=== PATIENT | female | born 1980 | race Caucasian/White ===

== ENCOUNTER 2020-02-11 10:12 | Day surgery (SDC) | payer MEDICARE, MEDICAID, SELFPAY ==
[2020-02-11 10:20] VITALS: BMI 21.2
[2020-02-11 10:40] VITALS: BP 122/61; PULSE 84; RESP 18; TEMP 36.9; O2SAT 97
[2020-02-11 10:46] LABS: UPreg QC Valid YES; Urine Pregnancy NEGATIVE (NEGATIVE)
--- NOTE | 2020-02-11 11:10 | P.CONAN_ITS ---
[facility] Past Medical History Medical History (Updated 02/11/20 @ 10:39 by Tamika Rodriguez RN) delivery delivered Colonoscopy planned Sigmoidoscopy performed Surgical History Surgical History (Updated 02/11/20 @ 10:31 by Tamika Rodriguez RN) History of esophagogastroduodenoscopy (EGD) History of esophagogastroduodenoscopy (EGD) Ileostomy status Status post reversal of ileostomy Social History Social History Smoking Status: Never smoker Use of substances other than those prescribed or required for medical reasons: No Have you been hit, kicked, punched, or otherwise hurt by someone within the past year? If so, by whom?: No Advance Directives: No Advance Directives Information Provided: No Meds Allergies Allergy/AdvReac Type Severity Reaction Status Date / Time No Known Allergies Allergy Verified 02/11/20 10:23 Home Medications Medication Instructions Recorded Confirmed Type ciprofloxacin HCl [Cipro] 500 mg PO BID 02/11/20 02/11/20 History loperamide 02/11/20 History metronidazole [Flagyl] 500 mg PO Q8H 02/11/20 02/11/20 History Exam Exam Date and Time: February 11, 2020 1110 Height,Weight and Vital Signs: Height 5 ft 3 in Weight 54.431 kg Last Vital Signs Temp 98.4 F 02/11/20 10:40 Pulse 84 02/11/20 10:40 Resp 18 02/11/20 10:40 BP 122/61 02/11/20 10:40 Pulse Ox 97 02/11/20 10:40 Pertinent Lab Results Pertinent Lab Results: Laboratory Tests 02/11/20 10:32 Urine Test NEGATIVE Airway Mallampati Class: II TM Dist: >3cm Neck ROM: Full Heart: RRR Lungs: CTA BL Assessment and Plan Assessment Anesthesia Assessment: Anesthesia Plan Discussed and Smoking Cess. Discussed Final Anesthetic Review NPO: Yes ASA Class: II Final Preanesthetic Review: Meds/Allgs Chart Reviewed and Consent Obtained/Reviewed Patient Risk: Intermediate Procedure Risk: Intermediate Anesthetic Plan Anesthetic Plan: MAC: Disposition: Standard PACU
[2020-02-11 11:27] LABS: Basophils Absolute Auto 0.1 X10*3/uL (0.0-0.2); Basophils Percent Auto 0.9 % (0-2); Eosinophils Absolute Auto 0.1 X10*3/uL (0.0-0.4); Eosinophils Percent Auto 2.1 % (0-4); Hematocrit 35.9 % (37-47); Imm Gran Abs Auto 0.01 X10*3/uL (0.00-0.03); Imm Gran Pct Auto 0.2 % (0.0-0.4); Lymphocytes Absolute Auto 1.2 X10*3/uL (1.2-4.9); Lymphocytes Percent Auto 20.2 % (20-40); MANUAL DIFF FLAG NO; Mean Corpuscular HGB Conc 33.4 g/dl (31.0-35.0); Mean Corpuscular Hemoglobin 26.6 pg (27.0-33.0); Mean Corpuscular Volume 79.6 fL (80-98); Mean Platelet Volume 11.4 fL (9.4-12.3); Monocytes Absolute Auto 0.4 X10*3/uL (0.1-1.2); Monocytes Percent Auto 6.1 % (2-11); Neutrophils Percent Auto 70.5 % (45-73); Platelet Count 255 X10*3/uL (160-400); Red Blood Count 4.51 X10*6/uL (4.20-5.50); White Blood Count 5.7 X10*3/uL (4.8-10.8)
[2020-02-11 11:46] VITALS: BP 77/39; PULSE 70; RESP 15; TEMP 36.5; O2SAT 95
--- NOTE | 2020-02-11 11:57 | PM.OP ---
Brief Operative Note Date of Service: 02/11/20 Pre-op diagnosis: Pouchitis Post-op diagnosis: same Procedure: Ileoscopy from anus to 50 cm with biopsies Surgeon: Alhaji Babb Anesthesia: MAC Estimated blood loss (mL): 3.0 Pathology: other (A. Ileal pouch from 5-10cm B. Ileal pouch anatomosis at 25cm C. Small intestine at 50cm) Condition: stable Disposition: other
[2020-02-11 12:00] VITALS: BP 94/57; PULSE 72; RESP 16; TEMP 36.5; O2SAT 100
[2020-02-11 12:34] LABS: Erythrocyte Sedimentation Rate 14 MM/HR (0-20)
--- NOTE | 2020-02-11 12:44 | HO.POSTANES ---
Post Anesthesia Evaluation Post Anesthesia Evaluation Vital Signs: Vital Signs Temp Pulse Resp BP Pulse Ox 02/11/20 12:00 97.7 F 72 16 94/57 L 100 02/11/20 11:46 97.7 F 70 15 77/39 L 95 02/11/20 10:40 98.4 F 84 18 122/61 97 Anesthesia: Monitored and General Mental Status: Awake Pain Control: Satisfactory Nausea/Vomiting: None Hydration: Adequate Anesthesia-Related Issues: No Anes. Related Issues
[2020-02-11 12:48] LABS: Folate 14.1 ng/mL (> or = 4.0); Vitamin B12 368 pg/mL (200-900)
--- NOTE | 2020-02-11 12:52 | OP_ITS ---
SURGEON: Alhaji Babb MD INDICATIONS: Full consent has been obtained from her for this, including risks of bleeding and perforation. PREOPERATIVE DIAGNOSIS: POSTOPERATIVE DIAGNOSIS: PROCEDURE PERFORMED: Evaluation of ileoanal pouch to 50 cm with biopsies. ESTIMATED BLOOD LOSS: COMPLICATIONS: ANESTHESIA: Monitored anesthesia care. ASSISTANTS: SPECIMENS: PREOPERATIVE DIAGNOSES: History of pouchitis, diarrhea, and urgency. POSTOPERATIVE DIAGNOSES: History of pouchitis, diarrhea, and urgency. Pouchitis, rule out Crohn's disease. DESCRIPTION OF PROCEDURE: The patient was placed in the left lateral decubitus position. The digital rectal exam revealed some external hemorrhoidal tissue and/or some skin tags, but there was no other perianal disease. The digital exam was not particularly tender, although again she was under some anesthesia. There was no sign of any stricture nor stenosis at the anal opening. The Olympus video pediatric colonoscope was entered into the anal canal and advanced easily to 50 cm. The low anastomosis with a single remaining staple was seen just inside the opening. There was no sign of any stricture. The mucosa distal to the low anastomosis did appear inflamed with edema and some ulcerations. However, again, there was no stricture. From the low anastomosis to approximately 25 cm were scattered ulcerations, but with intervening normal mucosa. The anastomosis at 25 cm was widely patent, but did have some associated edema, ulcerations, and friability. From 25 cm, I was able to advance well into the small bowel. Biopsies were obtained at 50 cm. The small bowel mucosa from the anastomosis at 25 cm to 50 cm, as well as proximal to 50cm for as far as I could see, was all normal without any sign of inflammation. I did obtain biopsies from the anastomosis at 25 cm. I also obtained biopsies of the pouch between 5 and 10 cm. The scope was then withdrawn from the patient. She tolerated the procedure well and was returned to the recovery area in stable condition. IMPRESSION: 1. Pouchitis. 2. Patent ileoanal anastomosis, although with some inflammation. 3. Some inflammation at the anastomosis at 25 cm, but no stricture. 4. Normal proximal small bowel. PLAN: The results of the biopsies will be checked. Given these findings and her history, I do not think this represents Crohn's disease. This appears consistent with some pouchitis. She has been on Cipro and Flagyl for couple of days and will continue that. She will also continue to use dicyclomine as needed. She will be having a CAT scan of the abdomen and pelvis scheduled in the near future.. I would also give her a trial of a mesalamine suppository, although given the inflammation, she may not be able to tolerate that. However, I think it would be worthwhile to try some topical treatment with that if possible. She was advised to see me within 1-2 months for followup. Depending upon her clinical course, we can continue antibiotics at a low dose for maintenance as well. Other options would be topical mesalamine if she tolerates that, oral mesalamine, or 1 of the biologic agents if the pouchitis proves refractory and relapsing in nature. She was advised to avoid all aspirin and NSAIDs long-term. This has been discussed with her . MD DAVE Wright/SELWYN / [id number] MTDD
[2020-02-11 14:59] LABS: Alanine Aminotransferase 7 U/L (0-31); Albumin Level 3.9 g/dL (3.5-5.0); Alkaline Phosphatase 58 U/L (39-117); Anion Gap 12 (12-20); Aspartate Amino Transferase 13 U/L (5-31); Bilirubin Direct 0.2 mg/dL (0.0-0.5); Bilirubin Total 0.4 mg/dL (0.0-1.0); Blood Urea Nitrogen 7 mg/dL (9-16); C Reactive Protein 0.15 mg/dL (< or = 0.50); Calcium 8.8 mg/dL (8.4-10.2); Carbon Dioxide 26 mmol/L (22-29); Chloride 104 mmol/L (96-108); Estimated Glomerular Filt Rate > 60; Glucose Random 90 mg/dL (60-115); Iron 99 mcg/dL (30-160); Percent Iron Saturation 30 % (15-50); Potassium 3.9 mmol/l (3.3-5.1); Sodium 138 mmol/L (135-145); Total Iron Binding Capacity 327 mcg/dL (228-428); Total Protein 6.4 g/dL (6.5-8.0); Unsaturated Iron Binding 228 ug/dL
[2020-02-11 15:19] LABS: Ferritin 13 ng/mL (10-250); TSH reflex Free T4 0.72 mIU/mL (0.32-4.0)
== END 2020-02-11 12:57 | disposition home or self-care (01) ==
PROVIDERS: Internal Medicine; PCP Pediatrics; Visit Provider Anesthesiology
PROC: 0DJD8ZZ Inspection of Lower Intestinal Tract, Via Natural or Artificial Opening Endoscopic (ICD-10-PCS; CPT 45330; principal; 2020-02-11 11:00)
DX: K91.850 Pouchitis (principal); K51.90 Ulcerative colitis, unspecified, without complications; Z98.0 Intestinal bypass and anastomosis status; K44.9 Diaphragmatic hernia without obstruction or gangrene
CPT/HCPCS: 45331; 36415; 80053; 80076; 81025; 82607; 82728; 82746; 83540; 84443; 85025; 85652; 86140; 88305

== ENCOUNTER 2020-02-29 14:28 | Outpatient (REF) | payer MEDICARE, MEDICAID, SELFPAY ==
--- NOTE | 2020-02-29 16:50 | CT_ITS ---
EXAMINATION: CT ABDOMEN AND PELVIS WITH CONTRAST CLINICAL INFORMATION: ULCERATIVE COLITIS,POUCHITIS,ABDOMINAL PAIN,RLQ COMPARISON: None TECHNIQUE: Multidetector volumetric images were obtained from the superior aspect of the liver through the pubic symphysis following administration 85 mL of Omnipaque 350 intravenous contrast. Sagittal and coronal reformatted images were obtained on the technologist's workstation. Oral contrast: No This CT examination was performed using dose optimization techniques as appropriate, variously including the following: *Automated exposure control *Adjustment of mA and/or kV according to patient size (this includes techniques or standardized protocols for targeted exams where dose is matched to indication/reason for exam; i.e. extremities or head) *Use of iterative reconstruction technique DLP: 381 mGy-cm FINDINGS: LUNG BASES: The visualized lung bases are unremarkable. LIVER, GALLBLADDER, AND BILIARY TREE: The liver is normal in size, shape, and attenuation. No focal hepatic lesion or biliary ductal dilatation is present. The gallbladder is unremarkable with no evidence of radiopaque gallstones, gallbladder wall thickening, or obvious pericholecystic inflammatory changes. PANCREAS: Unremarkable. SPLEEN: Unremarkable. ADRENAL GLANDS: Unremarkable. KIDNEYS AND URETERS: The kidneys are normal in size, shape, and attenuation. No hydronephrosis, hydroureter, or calculi seen. No perinephric stranding. BLADDER: Unremarkable. GASTROINTESTINAL TRACT: Status post subtotal colectomy. There is a surgical suture line associated with a distal small bowel loop. There is a bowel loop in the low pelvis which is distended with fluid and some debris to a diameter of 3 cm. Presumably this represents the distal rectum and sigmoid. No bowel wall thickening and no edema however involving this distended loop of bowel. There is no dilatation of the proximal small bowel loops. Mesentery: No inflammation. No free air or free fluid. ABDOMINAL WALL: No significant hernia is appreciated. LYMPH NODES: Normal. VASCULAR: Unremarkable. PELVIC VISCERA: Unremarkable. OSSEOUS STRUCTURES: Unremarkable. CT/CT abdomen pelvis w con IMPRESSION: Status post subtotal colectomy. Dilatation of distal bowel loops low in the pelvis presumably the residual distal rectum and sigmoid. No significant edema however of the bowel wall or edema in the mesentery. There is no free air or free fluid. This critical result was discussed with Dr. Gamino on 02/29/2020, 6:12 PM and it was ascertained that the content and urgency of the report was understood at the time of direct communication.
[2020-02-29] MEDS: iohexoL 350 MG/ML 100 ML INFUS..BTL IV (16:57)
[2020-02-29] MEDS: Barium Sulfate Oral (Berry) 450 ML ORAL.SUSP 900 ML PO (16:58)
== END 2020-02-29 14:29 | disposition home or self-care (01) ==
LOC: HO.CT 14:28
PROVIDERS: Visit Provider Internal Medicine
DX: R10.31 Right lower quadrant pain (principal); K51.90 Ulcerative colitis, unspecified, without complications; K91.850 Pouchitis
CPT/HCPCS: 74177; Q9967

== ENCOUNTER 2020-12-15 14:24 | Outpatient (REF) | payer MEDICARE, MEDICAID, SELFPAY ==
[2020-12-15 14:47] LABS: MANUAL DIFF FLAG NO
[2020-12-15 15:14] LABS: Basophils Absolute Auto 0.1 X10*3/uL (0.0-0.2); Basophils Percent Auto 0.7 % (0-2); Eosinophils Absolute Auto 0.1 X10*3/uL (0.0-0.4); Eosinophils Percent Auto 1.1 % (0-4); Hematocrit 36.9 % (37-47); Imm Gran Abs Auto 0.03 X10*3/uL (0.00-0.03); Imm Gran Pct Auto 0.3 % (0.0-0.4); Lymphocytes Absolute Auto 1.6 X10*3/uL (1.2-4.9); Lymphocytes Percent Auto 17.8 % (20-40); Mean Corpuscular HGB Conc 32.5 g/dl (31.0-35.0); Mean Corpuscular Hemoglobin 24.9 pg (27.0-33.0); Mean Corpuscular Volume 76.6 fL (80-98); Mean Platelet Volume 12.1 fL (9.4-12.3); Monocytes Absolute Auto 0.6 X10*3/uL (0.1-1.2); Monocytes Percent Auto 6.5 % (2-11); Neutrophils Absolute Auto 6.5 X10*3/uL (2.0-8.3); Neutrophils Percent Auto 73.6 % (45-73); Platelet Count 232 X10*3/uL (160-400); Red Blood Count 4.82 X10*6/uL (4.20-5.50); Red Cell Distribution Width 13.9 % (11.0-16.0); White Blood Count 8.9 X10*3/uL (4.8-10.8)
[2020-12-15 16:00] LABS: Alanine Aminotransferase 25 U/L (0-31); Albumin Level 4.5 g/dL (3.5-5.0); Alkaline Phosphatase 54 U/L (39-117); Aspartate Amino Transferase 20 U/L (5-31); Bilirubin Direct 0.2 mg/dL (0.0-0.5); Bilirubin Total 0.5 mg/dL (0.0-1.0); Iron 53 mcg/dL (30-160); Percent Iron Saturation 12 % (15-50); Total Iron Binding Capacity 453 mcg/dL (228-428); Total Protein 7.2 g/dL (6.5-8.0); Unsaturated Iron Binding 400 ug/dL
[2020-12-15 16:21] LABS: Ferritin 7 ng/mL (10-250)
[2020-12-15 16:33] LABS: Folate 11.7 ng/mL (> or = 4.0); Vitamin B12 422 pg/mL (200-900)
[2020-12-17 04:52] LABS: Immunoglobulin A 213 mg/dL (47-310)
[2020-12-18 16:16] LABS: Transglutaminase Ab IgG <1.0 U/mL; Transglutaminase IgA <1.0 U/mL
[2020-12-18 16:21] LABS: Gliadin Deamidated IgA Ab <1.0 U/mL; Gliadin Deamidated IgG Ab <1.0 U/mL
[2020-12-21 11:02] LABS: Endomysial IgA Antibody Negative (Negative)
== END 2020-12-15 14:25 | disposition home or self-care (01) ==
LOC: HO.LAB 14:24
PROVIDERS: PCP Pediatrics; Visit Provider Internal Medicine
DX: R10.31 Right lower quadrant pain (principal); K91.850 Pouchitis
CPT/HCPCS: 36415; 80076; 82607; 82728; 82746; 82784; 83516; 83540; 85025; 86255; 86256

== ENCOUNTER 2022-02-22 09:35 | Day surgery (SDC) | payer MEDICARE, MEDICAID, SELFPAY ==
[2022-02-22 09:39] VITALS: BMI 21.0
[2022-02-22 09:46] VITALS: BP 120/74; PULSE 80; RESP 20; TEMP 36.6
[2022-02-22 09:54] LABS: UPreg QC Valid YES; Urine Pregnancy NEGATIVE (NEGATIVE)
[2022-02-22 12:01] VITALS: BP 100/55; PULSE 77; RESP 17; TEMP 36.2; O2SAT 100
--- NOTE | 2022-02-22 12:02 | PM.OP ---
Brief Operative Note Date of Service: 02/22/22 Pre-op diagnosis: Abdominal pain, Pouchitis Post-op diagnosis: other (Gastric ulcer, gastritis, pouchitis) Procedure: EGD with biopsies, Pouch evaluation to 40cm with biopsies Surgeon: Alhaji Babb Anesthesia: MAC Was an Intervention Analyst used for this Procedure?: No Estimated blood loss (mL): 2.0 Pathology: other (A. Gastric antrum B. Gastric ulcer C. Pouch at 15cm) Condition: stable Disposition: PACU
--- NOTE | 2022-02-22 12:03 | P.CONAN_ITS ---
HPI - Anesthesia Eval Consult details Narrative: 41 F for EGD and Flex Sigmoidoccopy [facility] Past Medical History Medical History (Updated 02/21/22 @ 11:56 by Dorina Coffman RN) delivery delivered Colonoscopy planned Pouchitis Sigmoidoscopy performed Ulcerative colitis Family History Family history of problems with anesthesia: No Surgical History Surgical History (Updated 02/21/22 @ 11:56 by Dorina Coffman RN) History of esophagogastroduodenoscopy (EGD) History of esophagogastroduodenoscopy (EGD) Ileostomy status S/P proctocolectomy Status post reversal of ileostomy History of Problems with Anesthesia: No Social History Social History Patient Tobacco Use Status: Former Tobacco user Are you DNR?: No Advance Directives: No Advance Directives Information Provided: Yes Nutrition Risks: No Nutritional Risk Patient : No FDLMP: 3 weeks ago Meds Allergies Allergy/AdvReac Type Severity Reaction Status Date / Time No Known Allergies Allergy Verified 02/11/20 10:23 Home Medications Medication Instructions Recorded Confirmed Last Taken Type ciprofloxacin HCl 500 mg tablet 500 mg PO BID 02/11/20 02/22/22 02/20/22 History (Cipro) loperamide 2 mg tablet 02/11/20 02/10/20 History metronidazole 500 mg tablet 500 mg PO Q8H 02/11/20 02/22/22 02/20/22 History (Flagyl) dicyclomine 02/21/22 02/21/22 02/20/22 History mesalamine 1,[address] 02/21/22 Unknown History suppository Exam Exam Date and Time: February 22, 2022 1203 Height,Weight and Vital Signs: Height 5 ft 3 in Weight 53.977 kg Last Vital Signs Temp 97.1 F 02/22/22 12:01 Pulse 77 02/22/22 12:01 Resp 17 02/22/22 12:01 BP 100/55 L 02/22/22 12:01 Pulse Ox 100 02/22/22 12:01 O2 Del Method 02/22/22 12:01 O2 Flow Rate 4 02/22/22 12:01 Pertinent Lab Results Pertinent Lab Results: Laboratory Tests 02/22/22 09:40 Urine Test NEGATIVE Airway Mallampati Class: III TM Dist: >3cm Neck ROM: Full Loose/Missing/Broken Teeth: Yes Heart: S1,S2 Lungs: b/l breath sounds Assessment and Plan Assessment Anesthesia Assessment: Anesthesia Plan Discussed and Chart Reviewed Final Anesthetic Review Family History of Problems with Anesthesia: No History of Problems with Anesthesia: No NPO: Yes ASA Class: III Final Preanesthetic Review: Meds/Allgs Chart Reviewed, Consent Obtained/Reviewed and Anes Risks/Benef Reviewed Patient Risk: Intermediate Procedure Risk: Intermediate Anesthetic Plan Anesthetic Plan: MAC: Disposition: Standard PACU
[2022-02-22 12:16] VITALS: BP 96/56; PULSE 72; RESP 18; O2SAT 100
[2022-02-22 12:31] VITALS: BP 98/64; PULSE 74; RESP 18; TEMP 36.2; O2SAT 100
--- NOTE | 2022-02-22 13:33 | OP_ITS ---
SURGEON: Alhaji Babb MD INDICATIONS: The patient presents for evaluation of abdominal pain and symptoms of pouchitis with urgency and frequent bowel movements. Full consent has been obtained from her for both procedures, including risks of bleeding and perforation. PREOPERATIVE DIAGNOSIS: Abdominal pain and pouchitis. POSTOPERATIVE DIAGNOSIS: Abdominal pain and pouchitis, small gastric ulcer, gastritis, pouchitis, external hemorrhoids. PROCEDURE PERFORMED: Esophagogastroduodenoscopy with biopsies, and examination of the pouch into the small intestine to 40 cm with biopsies. ESTIMATED BLOOD LOSS: COMPLICATIONS: ANESTHESIA: Monitored anesthesia care. ASSISTANTS: SPECIMENS: DESCRIPTION OF PROCEDURE: The patient was placed in the left lateral decubitus position. The Olympus video gastroscope was passed in the posterior oropharynx and upper esophagus under direct vision. The scope was passed slowly to the distal esophagus. The gastroesophageal junction appeared normal at 38 cm. There was no esophagitis. The scope entered into the stomach. There was a minimal, if any, hiatal hernia. The scope was advanced to the pylorus and the duodenum was cannulated to the descending portion. The duiodenal folds appeared normal. The duodenum including the bulb appeared normal without mass or ulceration. The scope was withdrawn back in the stomach. The gastric antrum had some areas of erythema and edema consistent with gastritis. In the body of the stomach just above the pylorus, there was an approximately 6 mm ulcer with some surrounding edema. This appeared very benign and with a clean base, without bleeding. There was good peristalsis. The scope was retroflexed visualizing the proximal stomach carefully, which appeared normal, without any sign of mass or ulceration. The scope was straightened. Biopsies were obtained from the pre-pyloric gastric antrum in the area of gastritis, and then biopsies were obtained from the margins of the gastric ulcer as well. The scope was withdrawn back in the esophagus. The esophageal mucosa appeared normal. The scope was withdrawn from the patient. She was then turned around for the examination of the pouch. The digital rectal exam revealed some external hemorrhoids and/or skin tags. There was no evidence of any other perianal disease. The digital rectal exam itself was easy and did not seem that there was any stricture at the ileoanal anastomosis.. I used the Olympus video gastroscope to examine the pouch. This easily entered the anal canal. This was advanced to 40 cm. There was a fair amount of soft and solid stool above this area. With irrigation, I was able to visualize the mucosa between 20 and 40 cm and this appeared normal. Examination of the pouch did reveal some scattered ulcerations, edema, and some friability, but overall this was not severe whatsoever. The anastomosis at approximately 20 cm appeared quite patent without any sign of ulceration or stricture. The anastomosis at the ileoanal area was also patent and without any sign of stricture nor ulceration. I did obtain biopsies in the pouch at 15 cm. Again, the overall appearance of the pouch did not appear to reflect severe pouchitis whatsoever, but just some scattered ulcerations and edema. The scope was withdrawn from the patient. She tolerated both procedures well and was returned to the recovery area in stable condition. IMPRESSION: 1. Small gastric ulcer. 2. Gastritis. 3. Rule out Helicobacter pylori. 4. Pouchitis. PLAN: The results of all the biopsies will be checked. If H pylori happens to be present in the gastric biopsies, I would recommend we treat that. In the meantime, she will start omeprazole 20 mg daily to see if that can give her some relief of her upper abdominal pain. She was advised not to use any aspirin and NSAIDs long-term. In regard to the findings in the pouch, I did advise her to continue her intermittent antibiotics with Cipro and Flagyl, as well as the mesalamine suppository. If need be, we can switch the mesalamine suppository to something such as Proctofoam with hydrocortisone. If things are stable, then I do not think she will need any more aggressive treatment of the pouchitis. Obviously, if things were to worsen and prove refractory, then we might want to consider the addition of a biologic agent if she continues to have refractory pouchitis. Overall, I do think her symptoms are stable and she appears clinically well. Her recent MRE did not reveal any sign of proximal small-bowel disease and revealed only evidence of some pouchitis. There was no sign of any proximal small bowel stricture, nor other abnormality. I shall also try to get her on an antispasmodic such as Librax or , rather than dicyclomine, as those might help her nighttime abdominal discomfort and sleep issues better than the dicyclomine. This has all been discussed with her and her in detail. She will be seen in followup in my office. and/or Imodium as needed. MD DAVE Wright/SELWYN / [id number] MTDTan
== END 2022-02-22 13:20 | disposition home or self-care (01) ==
PROVIDERS: Nurse Practitioner; PCP Pediatrics; Visit Provider Internal Medicine
PROC: 0DJD8ZZ Inspection of Lower Intestinal Tract, Via Natural or Artificial Opening Endoscopic (ICD-10-PCS; CPT 45330; principal; 2022-02-22 10:30)
DX: K91.850 Pouchitis (principal); R15.2 Fecal urgency; Z98.0 Intestinal bypass and anastomosis status; K29.50 Unspecified chronic gastritis without bleeding; K51.90 Ulcerative colitis, unspecified, without complications; K25.9 Gastric ulcer, unspecified as acute or chronic, without hemorrhage or perforation; K64.4 Residual hemorrhoidal skin tags; Z90.49 Acquired absence of other specified parts of digestive tract; Z79.2 Long term (current) use of antibiotics; Z79.899 Other long term (current) drug therapy; Z87.891 Personal history of nicotine dependence
CPT/HCPCS: 44386; 43239; 81025; 88305; 88342; J2250; J3010

== ENCOUNTER 2023-04-28 13:11 | Outpatient (AMB) | payer MEDICARE, OTHER, SELFPAY ==
--- NOTE | 2023-04-28 13:20 | MHC.OFFVIS ---
Intake Vital Signs 04/28/23 13:21 Height 5 ft 3 in Weight 125 lb 10.616 oz BMI 22.3 BP 103/77 Blood Pressure Location Lt brachial Position Sitting Pulse 82 Intake Visit Reasons: IBS (irritable bowel syndrome) Intake Note: New patient in office for chronic ulcerative proctitis. CC: PT with hx of IBS, chronic ulcerative proctitis s/p ileostomy reversal in 2019. Patient stats she has trouble sleeping, and state she continues on abx after 3 years. She states nobody has revisit the abx or how long she should be on them but every time she tries to stop she gets worst. Patient previously seen by Dr. Babb. Accompanied by: Self / Same As Patient Allergies No Known Allergies Allergy (Verified 04/28/23 13:26) HPI HPI Comments History of Present Illness Details 42-year-old female with past medical history of ulcerative colitis, s/p robotic total abdominal colectomy with J-pouch ileoanal anastomosis with diverting ileostomy on 02/25/2018 as well as reversal and laparoscopic lysis of adhesions seeing me for assessment She few issues today she has been having weird sounds and distention lower abdomen pain in RLQ and imaging with partial SBO has apptm with Dr Larson to discuss options when she lays down can feel liek she has to go tot eh bathroom, and has urgency at times she is taking a probiotic 300$ she is taking yoghurt she has back pain stool when comes out is usu soft or liquid she is on chronic flagyl and cipro, if stops she feels horrible and has urgency Imaging reports reviewed from [facility]: GI series from 02/15 with partial SBO CTe - 2022- no active inflammation [facility] Medical History [facility] Surgical History robotic total abdominal colectomy with J-pouch ileoanal anastomosis with diverting ileostomy on 02/25/2018 as well as reversal laparoscopic lysis of adhesions Family History no FH of IBD Social History denies alcohol, no smoking, uses THC sometimes EXAM: GENERAL: The patient is well developed and nontoxic. VITAL SIGNS:see workflow HEENT: Nonicteric sclerae, PERRLA, EOMI. Oropharynx clear. Moist mucous membranes. Conjunctivae appear well perfused. No thyroid mass. CHEST: Chest wall is nontender. HEART: Regular rate and rhythm without murmurs. LUNGS: Clear to auscultation bilaterally. ABDOMEN: Soft, positive bowel sounds, nontender, no organomegaly.no flank tenderness SKIN: No rash, no excessive bruising, petechiae, or purpura. NEUROLOGIC: Cranial nerves II-XII intact without motor/sensory deficit. 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, antibiotic dependent, PLAN: 1/ Change to tinidazole, cont with cipro 2/ await surgical input 3/ will need pouchoscopy to r/o stricture or crohns after see surgery, --might have recurrence of adhesions, stricture, 4/ check c diff [facility] Medical History Pouchitis Ulcerative colitis Sigmoidoscopy performed Colonoscopy planned delivery delivered Surgical History S/P section H/O colonoscopy S/P proctocolectomy Status post reversal of ileostomy Ileostomy status History of esophagogastroduodenoscopy (EGD) History of esophagogastroduodenoscopy (EGD) Family History Father Cancer Social History Alcohol intake: never Patient Tobacco Use Status: Former Tobacco user Substance Use Type: Marijuana Physical Exam Vital Signs: Last Vital Signs Pulse 82 04/28/23 13:21 BP 103/77 04/28/23 13:21 BMI result Body Mass Index 22.3 Assessment & Plan Assessment & Plan (1) Irritable bowel syndrome: Code(s): K58.9 - Irritable bowel syndrome without diarrhea Plan: A/P: 1/ partial SBO--prob recurrence of adhesions, or could be stricture in J pouch 2/ possible recurrent pouchitis, antibiotic dependent, PLAN: 1/ Change to tinidazole, cont with cipro 2/ await surgical input 3/ will need pouchoscopy to r/o stricture or crohns after see surgery, --might have recurrence of adhesions, stricture, 4/ check c diff (2) Colitis: Code(s): K52.9 - Noninfective gastroenteritis and colitis, unspecified Plan: A/P: 1/ partial SBO--prob recurrence of adhesions, or could be stricture in J pouch 2/ possible recurrent pouchitis, antibiotic dependent, PLAN: 1/ Change to tinidazole, cont with cipro 2/ await surgical input 3/ will need pouchoscopy to r/o stricture or crohns after see surgery, --might have recurrence of adhesions, stricture, 4/ check c diff Orders: Orders Comprehensive Met. Panel Today K52.9 - Noninfective gastroenteritis and colitis, unspecified, K75.81 - Nonalcoholic steatohepatitis (HERNANDEZ) CDiff Gene PCR Today K52.9 - Noninfective gastroenteritis and colitis, unspecified Vitamin B12 and Folate Today K52.9 - Noninfective gastroenteritis and colitis, unspecified Complete Blood Count Auto Diff Today K52.9 - Noninfective gastroenteritis and colitis, unspecified C Reactive Protein Today K52.9 - Noninfective gastroenteritis and colitis, unspecified Erythrocyte Sedimentation Rate Today K52.9 - Noninfective gastroenteritis and colitis, unspecified Ferritin Today K52.9 - Noninfective gastroenteritis and colitis, unspecified Lactoferrin, Fecal, Quant. Today K51.50 - Left sided colitis without complications, K52.9 - Noninfective gastroenteritis and colitis, unspecified Vitamin B1 Today K52.9 - Noninfective gastroenteritis and colitis, unspecified Medications: New tinidazole 500 mg PO BID 30 days 60 tabs 1RF Coding Level of Care Code New Pt Level 4 (73554) Diagnoses Irritable bowel syndrome K58.9 Colitis K52.9
[2023-04-28 13:21] VITALS: BP 103/77; PULSE 82; BMI 22.3
== END 2023-04-28 14:20 | disposition home or self-care (01) ==
PROVIDERS: PCP Pediatrics; Visit Provider Nurse Practitioner Family
DX: K58.0 Irritable bowel syndrome with diarrhea (principal)
CPT/HCPCS: 99204

== ENCOUNTER 2023-04-28 13:11 | Outpatient (REF) | payer OTHER, SELFPAY ==
[2023-04-28 14:41] LABS: MANUAL DIFF FLAG NO
[2023-04-28 14:55] LABS: Basophils Percent Auto 0.5 % (0-2); Eosinophils Absolute Auto 0.1 X10*3/uL (0.0-0.4); Eosinophils Percent Auto 1.1 % (0-4); Hemoglobin 13.3 g/dl (12.0-16.0); Imm Gran Abs Auto 0.03 X10*3/uL (0.00-0.03); Imm Gran Pct Auto 0.4 % (0.0-0.4); Lymphocytes Absolute Auto 1.3 X10*3/uL (1.2-4.9); Lymphocytes Percent Auto 16.4 % (20-40); Mean Corpuscular HGB Conc 33.3 g/dl (31.0-35.0); Mean Corpuscular Hemoglobin 26.2 pg (27.0-33.0); Mean Corpuscular Volume 78.9 fL (80.0-98.0); Mean Platelet Volume 11.5 fL (9.4-12.3); Monocytes Absolute Auto 0.6 X10*3/uL (0.1-1.2); Monocytes Percent Auto 7.4 % (2-11); Neutrophils Absolute Auto 5.9 x10*3/uL (2.0-8.3); Neutrophils Percent Auto 74.2 % (45-73); Platelet Count 274 X10*3/uL (160-400); Red Blood Count 5.07 X10*6/uL (4.20-5.50); Red Cell Distribution Width 13.2 % (11.0-16.0)
[2023-04-28 15:46] LABS: Erythrocyte Sedimentation Rate 10 MM/HR (0-20)
[2023-04-28 15:54] LABS: Alanine Aminotransferase 17 U/L (0-31); Albumin Level 4.3 g/dL (3.5-5.0); Alkaline Phosphatase 78 U/L (39-117); Anion Gap 12 (12-20); Aspartate Amino Transferase 16 U/L (5-31); Bilirubin Total 0.4 mg/dL (0.0-1.0); Blood Urea Nitrogen 10 mg/dL (9-16); C Reactive Protein 0.52 mg/dL (< or = 0.50); Calcium 9.9 mg/dL (8.4-10.2); Carbon Dioxide 27 mmol/L (22-29); Chloride 104 mmol/L (96-108); Estimated Glomerular Filt Rate > 60; Glucose Random 98 mg/dL (60-115); Potassium 3.6 mmol/L (3.3-5.1); Sodium 139 mmol/L (135-145); Total Protein 7.2 g/dL (6.5-8.0)
[2023-04-28 15:55] LABS: Ferritin 22 ng/mL (10-250)
[2023-04-28 16:10] LABS: Folate 8.6 ng/mL (> or = 4.0); Vitamin B12 332 pg/mL (200-900)
== END 2023-04-28 13:12 | disposition home or self-care (01) ==
LOC: HO.LAB 13:11
PROVIDERS: Internal Medicine Gastroenterology; PCP Pediatrics; Visit Provider Nurse Practitioner Family
DX: K52.9 Noninfective gastroenteritis and colitis, unspecified (principal)
CPT/HCPCS: 36415; 80053; 82607; 82728; 82746; 84425; 85025; 85652; 86140

== ENCOUNTER 2023-04-29 14:01 | Outpatient (REF) | payer OTHER, SELFPAY ==
[2023-04-29 15:31] LABS: CDiff Gene PCR NEGATIVE (Negative)
[2023-05-08 04:18] LABS: Lactoferrin, Fecal, Quant. 164.46 mcg/mL (<7.25)
== END 2023-04-29 14:02 | disposition home or self-care (01) ==
LOC: HO.LNP 14:01
PROVIDERS: Visit Provider Internal Medicine Gastroenterology
DX: K52.9 Noninfective gastroenteritis and colitis, unspecified (principal); K51.50 Left sided colitis without complications
CPT/HCPCS: 83631; 87493

== ENCOUNTER 2023-09-12 12:01 | Outpatient (AMB) | payer MEDICARE, OTHER, SELFPAY ==
--- NOTE | 2023-09-12 12:08 | A.OFFVIS_ITS ---
Vital Signs 09/12/23 12:14 Height 5 ft 3 in Weight 125 lb BMI 22.1 BP 107/66 Blood Pressure Location Lt brachial Position Sitting Pulse 89 Intake Visit Reasons: r/s from 08/31 Intake Note: Patient follow up after surgery ? removal abdominal stretchers on [facility] Patient cc: abdominal bloating, between diarrhea and constipation, also wanted you to check her abdominal incision. Installation Superintendent Required: No Accompanied by: Self / Same As Patient Allergies No Known Allergies Allergy (Verified 09/12/23 12:12) HPI HPI r/s from 08/31: Details: 43-year-old female with past medical history of ulcerative colitis, s/p robotic total abdominal colectomy with J-pouch ileoanal anastomosis with diverting ileostomy on 02/25/2018 as well as reversal and laparoscopic lysis of adhesions seeing me for f/u RECAP: she had been having weird sounds and distention lower abdomen pain in RLQ and imaging with partial SBO has apptm with Dr Larson to discuss options when she lays down can feel liek she has to go tot eh bathroom, and has urgency at times she is taking a probiotic 300$ she is taking yoghurt she has back pain stool when comes out is usu soft or liquid she is on chronic flagyl and cipro, if stops she feels horrible and has urgency Imaging reports reviewed from [facility]: GI series from 02/15 with partial SBO - 2022- no active inflammation INTERIM: She had removal of adhesions by surgery no further bowel obstructions she has urgency still and fullness with bloating, distention she goes 12 times a day incisions are bothering her no blood in stools no nausea or vomiting appetite is good, sometimes can get intense hunger I gave her tinidazole for pouch inflammation, she takes q3d --if delays then gets attacks of pain with worsening urgency EXAM: GENERAL: The patient is well developed and nontoxic. VITAL SIGNS:see workflow HEENT: Nonicteric sclerae, PERRLA, EOMI. Oropharynx clear. Moist mucous membranes. Conjunctivae appear well perfused. No thyroid mass. CHEST: Chest wall is nontender. HEART: Regular rate and rhythm without murmurs. LUNGS: Clear to auscultation bilaterally. ABDOMEN: Soft, positive bowel sounds, nontender, no organomegaly.no flank tenderness SKIN: No rash, no excessive bruising, petechiae, or purpura. NEUROLOGIC: Cranial nerves II-XII intact without motor/sensory deficit. 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, antibiotic dependent, PLAN: 1/ Cont tinidazole, 2/ add cephalexin for 10 d for skin, incisions in case underlying seroma 3/ will need pouchoscopy to r/o stricture or crohns after see surgery, --might have recurrence of adhesions, stricture, check for cuffitis, etc, if neg then treatment for IPS with TCA< also can try VSL #3-- 4/ if ongoing discomfort in skin incisions, then maybe kenalog injection [facility] Medical History Pouchitis Ulcerative colitis Sigmoidoscopy performed Colonoscopy planned delivery delivered Surgical History S/P section H/O colonoscopy S/P proctocolectomy Status post reversal of ileostomy Ileostomy status History of esophagogastroduodenoscopy (EGD) History of esophagogastroduodenoscopy (EGD) Family History Father Cancer Social History Alcohol intake: never Patient Tobacco Use Status: Former Tobacco user Substance Use Type: Marijuana Physical Exam Vital Signs: Last Vital Signs Pulse 89 09/12/23 12:14 BP 107/66 09/12/23 12:14 BMI result Body Mass Index 22.1 Assessment & Plan Assessment & Plan (1) Colitis: Code(s): K52.9 - Noninfective gastroenteritis and colitis, unspecified Category: Medical Plan: see above Medications: New cephalexin 500 mg PO TID 30 caps 0RF 10 days Lactobac 2-Bifido 1-S. therm 112.5 billion cell (VSL#3) 1 cap PO DAILY 60 caps 1RF Coding Level of Care Code Est Pt Level 4 (46549) Diagnoses Colitis K52.9
[2023-09-12 12:14] VITALS: BP 107/66; PULSE 89; BMI 22.1
== END 2023-09-12 12:58 | disposition home or self-care (01) ==
PROVIDERS: PCP Pediatrics; Visit Provider Internal Medicine Gastroenterology
DX: K52.9 Noninfective gastroenteritis and colitis, unspecified (principal)
CPT/HCPCS: 99214

== ENCOUNTER → 2023-09-12 12:01 | Outpatient (BNVA) | payer OTHER, SELFPAY | PROVIDERS: PCP Pediatrics; Visit Provider Internal Medicine Gastroenterology ==